=== PATIENT | female | born 1995 | race Caucasian/White ===

== ENCOUNTER 2023-07-11 05:12 | Inpatient (IN) | payer OTHER, SELFPAY ==
[2023-07-11] VITALS (29 sets, daily range): BP systolic 94–129; BP diastolic 48–83; PULSE 67–81; RESP 16–18; TEMP 36.4–37; O2SAT 96–98; BMI 28.2
[2023-07-11] MEDS: LACTATED RINGERS 1000 ML 1,000 ML 999 ML IV (06:00)
[2023-07-11 06:03] LABS: Basophils Percent Auto 0.4 % (0.0-3.0); Eosinophils Percent Auto 1.1 % (0.0-7.0); Hematocrit 38.5 % (33.0-51.0); Immature Granulocytes Pct Auto 0.3 %; Lymphocytes Percent Auto 20.2 % (20-44); Mean Corpuscular HGB Conc 34 gm/dL (32-36); Mean Corpuscular Hemoglobin 29 pg (26-34); Mean Corpuscular Volume 87 fL (80-100); Monocytes Percent Auto 8.8 % (0.0-11.0); Neutrophils Percent Auto 69.2 % (42.0-72.0); Platelet Count* 227 K/uL (140-440); RDW Coefficient of Variation % 13.1 % (11.5-15.5); Red Blood Count 4.43 m/uL (4.00-5.20); White Blood Count* 11.31 K/uL (4.50-11.00)
[2023-07-11 06:15] LABS: Slide Review Reflex No
--- NOTE | 2023-07-11 06:51 | W.PM.LDBA ---
Subjective History of Present Illness Time Seen by Provider: 07:00 Date Seen: 07/11/23 Narrative: Patient is being admitted to Labor and Delivery for scheduled primary delivery at 39.2w. She is a 28 year old at weeks gestation. Her full history and physical was dictated by Dr. Shine on 06/19/23. Please see this for details. Magy is very nervous and reports starting to have contractions last night. Currently she is maximilian Q2-5 minutes. Reports they are not strong and overall she is comfortable. Active movement. Denies LOF, vaginal bleeding or abnormal vaginal discharge. OB - Problem Based A/P Additional Plan (1) History of fourth degree perineal laceration: Status: Acute (2) : Status: Acute Plan - We reviewed risks/benefits/and alternatives - She continues to desire primary delivery - Hgb/ plt: 13.0/227 - Will proceed with primary delivery OB Exam Physical Exam Vital signs: Pulse BP Pulse Ox 81 129/83 97 07/11/23 05:58 07/11/23 05:58 07/11/23 06:30 Narrative: Physical exam: General: No acute distress but anxious appearing Psych: Alert and oriented x3, full affect HEENT: Normocephalic, atraumatic Lungs: Unlabored breathing Neuro: No focal deficit. Mentating appropriately Abdomen: Gravid, soft. No rebound or guarding. No tenderness. Contractions are palpable with moderate intensity. Pelvic exam: Deferred to OR
[2023-07-11] MEDS: LACTATED RINGERS 1000 ML 1,000 ML 125 ML IV (07:04)
[2023-07-11] MEDS: CEFAZOLIN 2 GM INJ IVP (07:26)
--- NOTE | 2023-07-11 07:33 | W.ANESCHARGE ---
Anesthesia Charges Start Date/Time Anesthesia Start Date: 07/11/23 Anesthesia Start Time: 07:12 Stop Date/Time Anesthesia Stop Date: 07/11/23 Anesthesia Stop Time: 08:38
[2023-07-11] MEDS: KETOROLAC 30 MG/ML inj IVP ×3 (08:22→20:35)
[2023-07-11] MEDS: LACTATED RINGERS 1000 ML 1,000 ML 100 ML IV (08:26)
--- NOTE | 2023-07-11 08:40 | W.PM.NB ---
Nerve Block Nerve Block Time Seen by Provider: 08:30 Date Seen: 07/11/23 Type of block requested by surgeon for post-operative analgesia: TAP Side: bilateral Time out performed: Yes Verification of patient name: Yes Verification of date of : Yes Site marking: site marked Name of person performing procedure: David Continuous monitoring Was continuous monitoring of O2 sat, B/P, monitor worker, recorded every 15 minutes?: Yes Procedure Checklist: sterile prep, needles and gloves Ultrasound guided. Images saved: Yes Medications given in 5ml increments after negative aspiration: Marcaine %: 0.25 mL: 30 Needle gauge: 20 and Exparel mL: 10 Patient tolerated procedure well: Yes Additional comments: Needle noted between internal oblique and transversus abdominus. Local spread visualized Block Charges Block Charge (with Pro Fee): TAP Bilateral Use of Ultrasound Machine for Block: Yes- US Guidance/pain block
--- NOTE | 2023-07-11 08:40 | W.ANESCHARGE ---
Anesthesia Charges Start Date/Time Anesthesia Start Date: 07/11/23 Anesthesia Start Time: 07:12 Stop Date/Time Anesthesia Stop Date: 07/11/23 Anesthesia Stop Time: 08:38
--- NOTE | 2023-07-11 08:53 | PM.OBPRCCS ---
Procedure Time Seen by Provider: 08:00 Date of procedure: 07/11/23 Procedure Done: only Will [facility] bill your pro fee for this procedure?: Yes Procedure Description: DELIVERY BY SECTION Date of Service: 07/11/23 Delivery time: 738 Summary: Admitted for scheduled primary delivery at 39.2w, Primary Lower uterine transverse section, Pfannenstiel, Closed with sutures, QBL 385 cc, No complications, Findings: Normal uterus, bilateral ovaries and tubes 8/9 8lb 4oz. Primary Indication: History of 4th degree laceration Declined vaginal delivery Procedures: Primary Lower uterine transverse section Specimens Removed: Placenta Surgeon: Joanne Shine MD Anesthesia: Spinal, TAP Report: Prophylactic antibiotic, 2 g of Ancef was given before patient was taken to OR. After arrival to the operating room patient was placed in the supine position with left lateral tilt after administration of spinal anesthesia. Laparotomy A pfannenstiel incision was made through the anterior abdominal wall with #10 scalpel approximately 2 cm above the pubic symphysis. The incision was extended sharply with the #10 scalpel through the subcutaneous tissue to the level of fascia. The fascia was entered sharply with a #10 scalpel (Pfannenstiel) in the midline and extended in semi-elliptical fashion bluntly with digits. The rectus muscles were in the midline bluntly with digits. The peritoneum was then entered bluntly. The peritoneal incision was then extended superiorly and inferiorly under direct visualization with care being taken to avoid bladder and bowel. No adhesions were noted. The peritoneal incision was enlarged bluntly by lateral traction from the surgeon's and assistant food service manager's hand. Mitch retractor was inserted into the abdomen. Delivery A bladder flap was not developed as bladder was low off the lower uterine segment. Then sharp and blunt dissection with Metzenbaum scissor and fingers were performed. A low transverse hysterotomy was made then with #10 scalpel and extended laterally and cephalad with fingers in a low transverse fashion with Manu Castellon technique with care being taken to avoid injury to the fetus. The amniotic cavity (membrane) was then entered with spontaneous rupture of membrane, and the amniotic fluid was noted to be clear, fetus was delivered cephalic. With delivery of the baby, no extension was noted. Placenta was delivered spontaneously with steady traction on cord and manual separation of placenta from uterine wall. Closure Uterine cavity was cleaned after placental delivery with lap sponge x 2. The hysterotomy was closed in two layers with stitches using 0 vicryl with continuous locking stitches and 0 monocryl in a continuous non locking manner. Two zxpkey-yr-evqeun were placed at left uterine angle. One oounkx-zh-gelxd was placed at midline. Hemostasis was achieved as needed with electrocautery and Michelle was applied. The ovaries/tubes/uterine surface were evaluated. They were found to be normal. Mitch retractor removed and hemostasis was confirmed again. Fascia was closed with running stitches using 0 vicryl. Subcutaneous layer was irrigated. Hemostasis was checked for and found to be adequate. The subcutaneous layer was closed with running 2-0 Vicryl sutures. The skin was closed with 4-0 vicryl subcuticular sutures. The incision was cleaned and covered with a compression bandage and the procedure considered terminate at this time. Intraoperative Complications: None QBL: 385 cc Uterotonics: 30u of pitocin. 1g of TXA Disposition: The patient tolerated the procedure well. She was recovered in Obstetric PACU for close monitoring in stable condition, with a contracted uterus and normal transvaginal bleeding. The infant was sent to mother?s bedside/PACU. The placenta was not sent to pathology. Debrief with OR team performed and specimen reviewed at the conclusion of the procedure. Pathology: none sent Surgery Debrief Performed: Yes
[2023-07-11] MEDS: ACETAMINOPHEN 500 MG TABLET 1000 MG PO ×3 (09:54→23:49)
[2023-07-12] VITALS (13 sets, daily range): BP systolic 97–118; BP diastolic 62–81; PULSE 69–82; RESP 16; TEMP 36.4–37; O2SAT 95–96
[2023-07-12] MEDS: OXYCODONE 5 MG TABLET PO ×5 (01:20→20:23)
[2023-07-12] MEDS: KETOROLAC 30 MG/ML inj IVP ×3 (02:31→15:11)
[2023-07-12] MEDS: ACETAMINOPHEN 500 MG TABLET 1000 MG PO ×3 (05:21→18:16)
[2023-07-12 06:28] LABS: Hemoglobin* 10.4 gm/dL (12.0-16.0)
--- NOTE | 2023-07-12 08:35 | PM.OBPNVD1 ---
OB - PN:Subj Subjective Date Seen: 07/12/23 Patient comments OB post-: no complaints and pain well controlled [place] infant status: and doing well [place] feeding status: exclusively Narrative: Cecille is a 28 y.o. who was admitted to L & D for a primary C/S.? She had an uncomplicated primary .? ? The patient feels well.? The pain is well controlled with current medications.? She has no new complaints.? She is breast feeding and reports things are going well.? the patient has done well.? Vitals have been stable.? She has remained afebrile.? Has a good appetite, is tolerating a general diet.? She is voiding without difficulty.? She is passing gas and has not had a bowel movement.? She is ambulating and denies any dizziness.? Has Small amount of rubra lochia.? OB - PN: Obj Exam Physical Exam: Vital signs: Temp Pulse Resp BP Pulse Ox O2 Del Method 98.6 F 69 16 97/62 96 Room Air 07/12/23 05:09 07/12/23 05:09 07/12/23 07:00 07/12/23 05:09 07/12/23 05:09 07/12/23 05:09 Narrative: GENERAL APPEARANCE:? normal affect, alert, no distress MOOD:? appropriate CHEST:? clear to auscultation HEART:? regular rate and rhythm ABDOMEN:? soft, non-tender the uterine fundus is firm At Umbilicus, Midline and is appropriate for the stage of recovery. EXTREMITIES:? normal and no edema Incision: dressing intact, due to be removed today Urinary Catheter Management: Urethral: Cath placed during this visit: yes, but has since been removed by the nurse Reason for continuing: decision to DC catheter Insertion date: 07/11/23 Insertion time: 07:30 Removal date: 07/11/23 Removal time: 17:00 OB - PN: Obj Data Labs Labs: Laboratory Results - last 24 hr 07/12/23 06:13 Hgb 10.4 L OB - PN: A/P Delivery Assessment and Plan (1) care and examination immediately after delivery: Status: Acute (2) History of fourth degree perineal laceration: Status: Acute (3) Lactating mother: Status: Acute Plan day: 1 Plan: routine care Comments: Assessment/Plan?G 2 P 2 status post uncomplicated primary .? ?? 1.? Continue route PP cares? 2.? .? May see if desired? 3.? Anticipate discharge home tomorrow or the following day per pt preference? ?
[2023-07-12] MEDS: DOCUSATE SODIUM 100 MG CAPSULE PO (08:48)
--- NOTE | 2023-07-12 12:28 | PM.ANPOST ---
Post Anesthesia Note Post Anesthesia Note Patient seen: Inpatient Respiratory Status: adequate Cardiovascular Status: adequate Mental Status: baseline Pain: adequate Temp: baseline Anesthetic awareness: N/A Complications: none Follow care: none
[2023-07-12] MEDS: SODIUM CHLORIDE 0.9 % (FLUSH) 10 ML SYRINGE IVF (15:11)
[2023-07-12] MEDS: SIMETHICONE 80 MG TAB.CHEW PO (16:39)
[2023-07-12 18:52] LABS: Rapid Plasma Reagin (RPR) Non Reactive (Non Reactive)
[2023-07-12] MEDS: IBUPROFEN 600 MG TABLET PO (20:24)
[2023-07-13] MEDS: OXYCODONE 5 MG TABLET PO ×6 (00:43→23:51)
[2023-07-13] MEDS: ACETAMINOPHEN 500 MG TABLET 1000 MG PO ×4 (00:44→19:39)
[2023-07-13] MEDS: IBUPROFEN 600 MG TABLET PO ×4 (03:02→22:44)
[2023-07-13 05:10] VITALS: BP 96/63; PULSE 74; RESP 16; TEMP 36.4; O2SAT 96
[2023-07-13 08:30] VITALS: BP 99/62; PULSE 73; RESP 16; O2SAT 96
--- NOTE | 2023-07-13 09:29 | PM.OBPNVD1 ---
OB - PN:Subj Subjective Time Seen by Provider: 08:30 Date Seen: 07/13/23 Narrative: Ms. Garcia is a 28yo seen on POD2 from primary delivery performed in the setting of prior 4th degree laceration. is otherwise uncomplicated. Magy is feeling well since surgery, no acute concerns. She notes her pain in generally well controlled, utilizing tylenol and toradol with oxycodone PRN. She notes transition movements are the most painful, but does well once she's in a new position. She is tolerating PO intake without nausea/vomiting. Lochia is described as minimal. She is voiding spontaneously, passing gas. No BM yet. She ambulates without dizziness/lightheadedness. Denies chest pain and dyspnea. She is without difficulty. OB - PN: Obj Exam Physical Exam: Vital signs: Temp Pulse Resp BP Pulse Ox O2 Del Method 97.5 F L 73 16 99/62 96 Room Air 07/13/23 05:10 07/13/23 08:30 07/13/23 08:30 07/13/23 08:30 07/13/23 08:30 07/13/23 08:30 Narrative: General: Alert and oriented, in no acute distress Psych: Appropriate mood and affect Abdomen: Soft, nondistended. Tender to palpation of the low abdomen, consistent with postop state. No rebound or guarding. Uterus is firm, fundus at 1 below umbilicus. Incision is well approximated, with no peripheral erythema or drainage. Urinary Catheter Management: Urethral: Cath placed during this visit: yes, but has since been removed by the nurse Reason for continuing: decision to DC catheter Insertion date: 07/11/23 Insertion time: 07:30 Removal date: 07/11/23 Removal time: 17:00 OB - PN: Obj Data Labs Labs: Laboratory Results - last 24 hr 07/11/23 05:50 RPR Screen Non Reactive OB - PN: A/P Delivery Assessment and Plan (1) care and examination immediately after delivery: Status: Acute (2) History of fourth degree perineal laceration: Status: Acute (3) Lactating mother: Status: Acute Plan Ms. Garcia is a 28yo seen on POD2 from primary . She is doing well and meeting all appropriate postoperative milestones. We are continuing to work on her postop pain, where pain is exacerbated by changing position. Pain is generally well controlled on NSAIDs, Tylenol and oxycodone as needed. Benign abdominal exam, no incision concerns. She is breast-feeding without difficulty. Anticipate dismissal to home tomorrow. Continue routine cares.
[2023-07-13] MEDS: DOCUSATE SODIUM 100 MG CAPSULE PO (10:32)
[2023-07-13 16:29] VITALS: BP 130/88; PULSE 68; RESP 16; O2SAT 96
[2023-07-13 22:46] VITALS: BP 119/80; PULSE 80; RESP 17; TEMP 36.5
[2023-07-14] MEDS: ACETAMINOPHEN 500 MG TABLET 1000 MG PO ×2 (01:58→08:20)
[2023-07-14] MEDS: OXYCODONE 5 MG TABLET PO ×2 (04:08→08:20)
[2023-07-14] MEDS: IBUPROFEN 600 MG TABLET PO (04:09)
[2023-07-14 08:09] VITALS: BP 109/74; PULSE 66; RESP 16; TEMP 36.6; O2SAT 97
[2023-07-14] MEDS: DOCUSATE SODIUM 100 MG CAPSULE PO (08:20)
--- NOTE | 2023-07-14 08:40 | P.DS_ITS ---
DS: Providers Provider Time Seen by Provider: 08:40 Date Seen: 07/14/23 Date of admission: 07/11/23 05:12 Primary care physician: Farzaneh Ordaz DO Admitting Clinician: Joanne Shine MD Attending Physician on discharge: Joanne Shine MD Exam Narrative: Exam Narrative: General: Alert and oriented, in no acute distress Psych: Appropriate mood and affect Abdomen: Soft, nondistended. Tenderness to palpation in the low abdomen, consistent with postop state. Fundus at 1 below umbilicus. Incision is clean and dry, well approximated without erythema or drainage. Const: Vital Signs, click to edit/add: Vital Signs - 24 hr 07/13/23 16:29 07/13/23 22:46 07/14/23 08:09 Temperature 97.7 F 97.8 F Pulse Rate [Pulse Oximeter] 68 80 66 Respiratory Rate 16 17 16 Blood Pressure [Ri ght Arm] 130/88 119/80 109/74 Pulse Oximetry 96 97 Oxygen Delivery Me thod Room Air Room Air Room Air OB - DS: Summary Hospital Course Hospital Course: The patient is a 28 year old G 2 P 2 at 39 weeks gestation that was admitted to the Center on 07/11/23 for primary delivery given prior 4th degree laceration. She had an uncomplicated delivery. She delivered a viable male infant. She is breast feeding. the patient has done well. Magy is feeling well this morning. Pain is well controlled with ibuprofen, Tylenol and oxycodone as needed. She is tolerating a diet, no nausea or vomiting. Passing flatus, no bowel movement yet. Spontaneously voiding. Ambulates without dizziness or lightheadedness. No incision or lower extremity concerns. Peripartum Data Procedures: Procedures Operation Date: 07/11/23 07:15 Actual Procedure Side Surgeon p Primary Section Not Applicable Joanne Shine MD Pool Infant Gender: Male Time Spent with Patient Time attestation: Total time spent providing and/or coordinating discharge services: Discharge Plan Discharge Disposition: Home, Self-Care Date of Admission: 07/11/23 05:12 Attending Provider on Discharge: Melanie Guo Primary Care Provider: Farzaneh Ordaz Condition: Stable Anticipated Discharge Date/Time: 07/14/23 08:43 Discharge Medications: New oxycodone 5 mg Tablet 5 mg PO Q4H PRN (Reason: Pain) 7 Days Qty: 15 0RF Continued Classic 28 mg iron- 800 mcg tablet 1 tab PO .1qd Discharge Orders: Discharge Order (Routine); Ordered 07/14/23 Ordered By: Melanie Guo Patient Education: OB /Breast Feeding Additional Instructions: Lifting restrictions: Please do not lift more than 20lbs for 6 weeks Sexual restriction: Pelvic rest for 6 weeks Pain control: Over the counter Motrin 600 mg by mouth every six hours on a full stomach for pain as needed Over the counter Acetaminophen 1000 mg by mouth every six hours on a full stomach for pain as needed Oxycodone 5mg every 4 hours as needed for breakthrough pain Please call with: - Heavy vaginal bleeding - Increasing or severe abdominal pain - Fevers/chills - Inability to tolerate solid/liquids by mouth, recurrent nausea/vomiting - Incision redness/drainage - Signs or symptoms of a blood clot - calf pain, redness, swelling, chest pain or shortness of breath Follow Up Appointments: Farzaneh Ordaz DO [Primary Care Provider] - Forms: MyHealth Info Instructions Discharge Comments: Please follow up in [facility] for 2 and 6 week visits
== END 2023-07-14 11:30 | disposition home or self-care (01) | DRG 788 ==
PROVIDERS: Admitting Provider Obstetrics & Gynecology; PCP Family Medicine; Visit Provider Obstetrics & Gynecology
PROC: 10D00Z1 Extraction of Products of Conception, Low, Open Approach (ICD-10-PCS; CPT 59514; principal; 2023-07-11 07:15)
DX: O82 Encounter for cesarean delivery without indication (principal); Z3A.39 39 weeks gestation of pregnancy; Z37.0 Single live birth; G89.18 Other acute postprocedural pain; Z87.59 Personal history of other complications of pregnancy, childbirth and the puerperium
CPT/HCPCS: 01961; 36415; 64488; 76942; 85018; 85025; 86592; 86850; 86900; 86901; A9270; C9290; J0665; J0690; J1100; J1885; J2250; J2274; J2371; J2405; J2590; J7120

== ENCOUNTER 2023-07-25 13:27 | Outpatient (CLI) | payer OTHER, SELFPAY | END 2023-07-25 13:28 | disposition home or self-care (01) | LOC: NFLDREF 13:29 | PROVIDERS: PCP Family Medicine; Visit Provider Advanced Practice Midwife | DX: O90.0 Disruption of cesarean delivery wound (principal) | CPT/HCPCS: 87070; 87186 ==

== ENCOUNTER 2024-07-18 14:09 | Outpatient (CLI) | payer OTHER, SELFPAY ==
[2024-07-18 14:22] LABS: Ur HCG Qualitative* Negative (Negative)
[2024-07-18 18:11] LABS: Chlamydia DNA Amplified* NOT DETECTED (No Detected); GC DNA Amplified* NOT DETECTED (No Detected)
[2024-07-22 03:43] LABS: HSV 1 Subtype by PCR Detected; HSV 2 Subtype by PCR Not Detected; Herpes Simplex Subtype Source Vesicle
== END 2024-07-18 14:10 | disposition home or self-care (01) ==
PROVIDERS: PCP Family Medicine; Visit Provider Nurse Practitioner Family
DX: N90.89 Other specified noninflammatory disorders of vulva and perineum (principal); N39.0 Urinary tract infection, site not specified; B95.1 Streptococcus, group B, as the cause of diseases classified elsewhere; Z11.3 Encounter for screening for infections with a predominantly sexual mode of transmission; Z11.59 Encounter for screening for other viral diseases; Z32.02 Encounter for pregnancy test, result negative
CPT/HCPCS: 81025; 87086; 87181; 87186; 87491; 87529; 87591

== ENCOUNTER 2024-09-15 18:02 | Outpatient (CLI) | payer OTHER, SELFPAY | END 2024-09-15 18:03 | disposition home or self-care (01) | LOC: NFLDREF 09-18 07:21 | PROVIDERS: PCP Family Medicine; Referring Provider Family Medicine; Visit Provider Physician Assistant | DX: R35.0 Frequency of micturition (principal) | CPT/HCPCS: 87086 ==